=== PATIENT | female | born 1960 | race African-American/Black ===

== ENCOUNTER 2023-12-14 19:54 | Emergency (ER) | payer MEDICARE, MEDICAID, SELFPAY ==
[2023-12-14 20:01] VITALS: BP 116/50
[2023-12-14 20:07] VITALS: BP 116/50; BMI 56.5
[2023-12-14 20:44] LABS: % Basophils 0.2 % (0-2); % Eosinophils 4.1 % (0-6); % Immature Granulocytes 0.4 % (0-0.5); % Lymphocytes 8.2 % (20.5-51.1); % Monocytes 9.4 % (1.7-9.3); % Neutrophils 77.7 % (42.2-75.2); Absolute Eosinophils 0.4 10^3/uL (0-0.7); Absolute Lymphocytes 0.9 10^3/uL (1.2-3.4); Absolute Neutrophils 8.3 10^3/uL (1.4-6.5); Hematocrit 34.2 % (37.0-47.0); Hemoglobin 10.9 g/dL (12.0-16.0); Mean Corp Hgb Conc. 31.9 g/dL (33.0-37.0); Mean Corpuscular Hgb 28.1 pg (27.0-31.0); Mean Corpuscular Volume 88.1 fL (81.0-99.0); Nucleated Red Blood Cells % 0 %; Platelet Count 332 10^3/uL (130-400); Red Blood Cell Count 3.88 10^6/uL (4.20-5.40); Red Cell Dist. Width 16.5 % (11.5-14.5); White Blood Cell Count 10.7 10^3/uL (4.8-10.8)
--- NOTE | 2023-12-14 20:56 | ED.GENMED ---
History of Present Illness
General
Chief Complaint: Cardiac Symptoms
Source: patient and ambulance crew
Exam Limitations: none
Time Seen by Provider: 12/14/23 20:36
Nursing documentation reviewed up to this point in time: agreed with
Travel History
Have you had any contact with someone who has COVID-19?: No
Do you have any symptoms of coronavirus? Fever > 100 degrees, chills, cough, shortness of breath, sore throat, loss of taste or smell, muscle aches, or headache?: Yes
Symptoms:: chills, SOB
History of Present Illness
History of Present Illness:
63-year-old female presents emergency from complaining of shortness of breath and leg swelling. She is on 2 L oxygen. Is been worsening over the past 2 days.
Past History
Past History
ED Past Medical History: Arrthythmia (Atrial flutter), Cancer (Malignant breast cancer right), CHF, COPD, NIDDM and Renal failure
ED Past Surgical History: Cardiac (Cardiac catheterization), Gynecological ([facility]) and Other (Tracheostomy during COVID)
Social History
Tobacco: Non-smoker
Alcohol: None
Drug: None
Review of Systems
Review of Systems
Allergies reviewed?: Yes
All Other Systems: Not applicable
Constitutional: Reports no symptoms
EENT: Reports no symptoms
Respiratory: Reports trouble breathing
Cardiac: Reports no symptoms
ABD/GI: Reports no symptoms
: Reports no symptoms
Musculoskeletal: Reports edema
Skin: Reports no symptoms
Neurological: Reports no symptoms
Endocrine: Reports no symptoms
Hematologic/Lymphatic: Reports no symptoms
Psychiatric: Reports no symptoms
Phy Exam
Physical Exam
Physical Exam:
Physical Exam
General: Afebrile
Neck: supple. no meningeal signs. normal posterior pharynx
Heart: s1/s2 regular rate and rhythm, no murmur. equal radial
pulses.
HEENT: Pupils equal round reactive to light, EOMI
Lungs: Moderate respiratory distress. Rales bilaterally
Abdomen: normal bowel sounds. not tender. no CVAT
Neuro: alert and oriented. no focal neurological deficits cranial nerves II through XII intact
Skin: no rash
Psychiatric: well kept. interactive and cooperative
Extremities: Bilateral tibial edema. no calf tenderness. negative homans. good distal pulses
Course
Orders/Labs/Results
Orders:
Orders
12/14/23 19:58
EKG [Electrocardiogram (*1)] Urgent
Reason for Study: Shortness of Breath
EKG- Treatment ONCE
12/14/23 20:06
Cardiac Monitoring- Treatment ONCE
IV Insert/Care/Rem.- Treatment PRN
12/14/23 20:30
Complete Blood Count/With Diff Urgent
Pro-BNP [NT-proBNP] Urgent
Troponin I Urgent
12/14/23 20:55
CR Chest - 2 Views Urgent
Comment:
Reason For Exam: short of breath
12/14/23 21:00
Comprehensive Metabolic Panel Urgent
Lactic Acid Q4H
Comment: CANCEL 2nd LACTIC ACID IF 1st LACTIC ACID IS LESS THAN 2
Blood Culture Q30M
NORIS Source: Blood/Venous
Specimen Description:
Blood Culture Q30M
NORIS Source: Blood/Venous
Specimen Description:
12/14/23 22:49
Ipratropium/Albuterol Sulfate [Duoneb] 3 ml INH R NOW STA
Abnormal Lab Results
12/14/23 12/14/23
20:30 21:00
RBC 3.88 L 10^6/uL
(4.20-5.40)
Hgb 10.9 L g/dL
(12.0-16.0)
Hct 34.2 L %
(37.0-47.0)
MCHC 31.9 L g/dL
(33.0-37.0)
RDW 16.5 H %
(11.5-14.5)
MPV 11.0 H fL
(7.4-10.4)
Absolute Neuts (auto) 8.3 H 10^3/uL
(1.4-6.5)
Absolute Lymphs (auto) 0.9 L 10^3/uL
(1.2-3.4)
Absolute Monos (auto) 1.0 H 10^3/uL
(0.1-0.6)
Neutrophils % 77.7 H %
(42.2-75.2)
Lymphocytes % 8.2 L %
(20.5-51.1)
Monocytes % 9.4 H %
(1.7-9.3)
BUN 24 H mg/dl
(7-17)
Glucose 109 H mg/dl
(70-99)
Albumin 3.4 L g/dl
(3.5-5.0)
12/14/23 20:30
12/14/23 21:00
Vital Signs
Initial and Last Documented VS:
Initial Vital Signs
BP
116/50
12/14/23 20:01
Last Documented Vital Signs
Temp Pulse Resp BP Pulse Ox
98.2 F 79 24 110/56 99
12/14/23 20:07 12/15/23 00:00 12/15/23 00:00 12/15/23 00:01 12/15/23 00:00
MDM/Problems Addressed
Differential Diagnosis Includes:
Pneumonia, CHF, COPD exacerbation
MDM/Problems Addressed:
63-year-old female with COPD exacerbation, mild, improved after DuoNeb. Peripheral neuropathy. Improved after observation. Patient stable for discharge.
Chronic conditions affecting care: DM and COPD
Acute Exacerbation and/or Progression of Chronic Illness: DM and COPD
*Radiology
Radiology exam reviewed: preliminary read by ED provider (Chest x-ray no acute findings)
*Pulse Oximetry
Patient hypoxic: no
*EKG
Interpreted by ED Provider?: Yes
EKG Intrepretation Date: 12/14/23
EKG Intrepretation Time: 20:04
Interpretation: abnormal
Comparison EKG: no changes
Heart Rate: 83
Rate: normal
Rhythm: sinus and PVC's
[place]: left axis deviation
Interval: normal interval
QRS Pattern: right bundle branch block
Ischemia: no ischemia
*Claims Clerk Interpretation
Rate: normal
Interpretation: normal
Heart Rate: 84
Rhythm: sinus
*Critical Care Note
Total Time (30-74mins, 75-104mins- exclusive of procedures): Not Applicable
Patient Management
Social determinants of health affecting care: Living situation
Escalation/DeEscalation of care consider admission/obs:
Admit not indicated
ED Attending Note
-
Portions of this chart may have been created with voice recognition software.� Occasional wrong word or��sound alike� substitutions may have occurred due to the inherent limitations of voice recognition software.
Discharge Plan
Departure
Patient Disposition: [facility]
Date of Disposition: 12/15/23
Time of Disposition: 00:43
Patient with high blood pressure during this ER visit?: No
Condition: Good
Discharge Problem:
Neuropathic pain of both legs, COPD exacerbation
Instructions: Neuropathic pain, COPD Exacerbation, Adult ED
Prescriptions:
No Action
furosemide [Lasix] 40 mg Tablet
40 mg PO DAILY
Rx Instructions:
12/13-12/17
atorvastatin [Lipitor] 40 mg Tablet
40 mg PO DAILY
acetaminophen 325 mg Tablet
650 mg PO Q6H PRN (Reason: mild pain/temp>100)
torsemide 20 mg Tablet
20 mg PO DAILY
lidocaine [Lidocaine Pain Relief] 4 % Adhesive Patch,Medicated
1 patch TOPICAL DAILY
Patient Comments:
12/14/2023: apply to lower back & right hip
albuterol sulfate 2.5 mg /3 mL (0.083 %) Solution For Nebulization
2.5 mg INHALATION R Q2 PRN (Reason: wheezing)
ammonium lactate 12 % Lotion
1 applic TOPICAL BID
Rx Instructions:
apply to b/l legs
trazodone 50 mg Tablet
50 mg PO HS
miconazole nitrate [Micatin] 2 % Cream
1 applic TOPICAL BID
Patient Comments:
12/14/2023: apply to breast, groin, inner thigh
sennosides-docusate sodium [Senna Plus] 8.6-50 mg Tablet
2 tab-cap PO Q12 PRN (Reason: constipation)
metoprolol succinate [Toprol XL] 100 mg Tablet Extended Release 24 Hr
100 mg PO DAILY
sertraline 100 mg Tablet
200 mg PO DAILY
guaifenesin [Robitussin Mucus-Chest Congest] 100 mg/5 mL Liquid
200 mg PO Q6 PRN (Reason: congestion)
potassium chloride 20 mEq Tablet,Er Particles/Crystals
20 meq PO DAILY
magnesium hydroxide [Milk of Magnesia] 400 mg/5 mL Suspension
30 ml PO HS PRN (Reason: if no bm x 3 days)
bisacodyl 10 mg Suppository
10 mg VT DAILY PRN (Reason: if no results for MOM)
epinephrine [EpiPen] 0.3 mg/0.3 mL Auto-Injector
0.3 mg IM ONCE PRN (Reason: allergic reaction)
oxycodone 5 mg Tablet
5 mg PO Q8 PRN (Reason: moderate pain)
amiodarone 100 mg Tablet
100 mg PO DAILY
pregabalin 50 mg Capsule
50 mg PO TID
Eliquis 5 mg Tablet
5 mg PO BID
alogliptin 25 mg Tablet
25 mg PO DAILY
balsam stella-castor oil Ointment
1 applic TOPICAL DAILY
Patient Comments:
12/14/2023: apply to b/l LE
Cepacol Sore Throat (arturo-men) 15-2.6 mg Lozenge
1 phil MUCOUS MEMBRANE Q2 PRN (Reason: sore throat)
Resta Lite
1 applic topical BID
Patient Comments:
12/14/2023: apply to B/L heels, LE, elbows
Referrals:
Ace Mueller MD [Family Provider] -
Interventions
Interventions:
*Risk Screen - Suicide Last Done: 12/14/23 20:07
*General Assessment Last Done: 12/14/23 20:07
*Neglect/Abuse Screening Last Done: 12/14/23 20:07
ED- Fall Risk Assessment Last Done: 12/14/23 20:28
*ED COVID-19 Vaccine History Last Done: 12/14/23 20:07
ED- Pulmonary Assessment Last Done: 12/14/23 20:34
ED- Cardiac Assessment Last Done: 12/14/23 20:34
Discharge Date and Time
Print Language: [email or web address]
[2023-12-14 21:00] VITALS: BP 135/67
[2023-12-14 21:05] LABS: NT-proBNP 576 pg/ml; Troponin I < 0.012 ng/ml
[2023-12-14 21:42] LABS: Lactic Acid 1.2 mmol/L (0.7-2.0)
[2023-12-14 21:43] LABS: ALT (SGPT) 20 U/L (0-35); AST (SGOT) 23 U/L (14-36); Albumin 3.4 g/dl (3.5-5.0); Alkaline Phosphatase 113 U/L (38-126); Blood Urea Nitrogen 24 mg/dl (7-17); Calcium 8.5 mg/dl (8.4-10.2); Carbon Dioxide 28 mmol/L (22-30); Chloride 104 mmol/L (98-107); Estimated Creatinine Clearance 120 ml/min; Glucose 109 mg/dl (70-99); Sodium 136 mmol/L (135-145); Total Bilirubin 0.5 mg/dl (0.2-1.3); Total Protein 6.8 g/dl (6.3-8.2); eGFR > 60.00
[2023-12-14 22:00] VITALS: BP 111/49
[2023-12-14] MEDS: DUONEB 3 ML INH (22:54)
[2023-12-14 23:07] VITALS: BP 105/44
[2023-12-15] VITALS: BP 110/56
[2023-12-15 00:01] VITALS: BP 110/56
== END 2023-12-15 01:38 ==
LOC: EMR 19:54
PROVIDERS: EMERGENCY PHYSICIAN Emergency Medicine; FAMILY PHYSICIAN Internal Medicine
DX: M79.605 Pain in left leg (principal); M79.604 Pain in right leg; E11.42 Type 2 diabetes mellitus with diabetic polyneuropathy; J44.1 Chronic obstructive pulmonary disease with (acute) exacerbation; G89.29 Other chronic pain
CPT/HCPCS: 99284; 94640; 71046; 80053; 83605; 83880; 84484; 85025; 87040